=== PATIENT | female | born 1990 | race Caucasian/White ===

== ENCOUNTER 2018-05-29 10:09 | Emergency (ER) | payer OTHER ==
[~2018-05-29] VITALS: Ht 165.1 cm; Wt 56.7 kg
[2018-05-29] MEDS ORDERED: EPINEPHRINE (1:1000) MDV 30 MG/30ML VIAL SUBCUT ONE (10:30)
[2018-05-29] MEDS ORDERED: diphenhydrAMINE HCL 50 MG/ML VIAL IV ONE (10:30)
[2018-05-29] MEDS ORDERED: IV NS 0.9% 1,000 ML BAG IV ONE (10:30)
[2018-05-29] MEDS ORDERED: FAMOTIDINE/PF INJ 40 MG in IV D5W 250 ML IV ONE (10:30)
[2018-05-29] MEDS ORDERED: methylPREDNISolone SOD SUCC 125 MG/2ML VIAL IV ONE (10:30)
--- NOTE | 2018-05-29 10:30 | NUR ---
Patient came in for generalized hives. first on legs last night, woke up this am widespread. Breathing even and unlabored, no sob noted. WIll continue to monitor.
[2018-05-29] MEDS ORDERED: diphenhydrAMINE HCL 50 MG/ML VIAL ONE (10:38)
[2018-05-29] MEDS ORDERED: EPINEPHRINE (1:1000) 1 MG/ML AMPUL ONE (10:38)
[2018-05-29] MEDS ORDERED: methylPREDNISolone SOD SUCC 125 MG/2ML VIAL ONE (10:39)
--- NOTE | 2018-05-29 12:02 | NUR ---
Hives resolved. Patient denies itching. Peripheral IV removed. Patient discharged to home in stable condition. Written and verbal after care instructions given. Patient verbalizes understanding of instruction.
[2018-05-29 12:05] VITALS: BP 128/72
== END 2018-05-29 12:06 | disposition home or self-care (01) ==
LOC: ER 10:12
DX: T78.1XXA Other adverse food reactions, not elsewhere classified, initial encounter (principal); X58.XXXA Exposure to other specified factors, initial encounter
CPT/HCPCS: 96365; 96372; 96375; 99283; J0171; J1200; J2930; J3490; J7030; J7060